=== PATIENT | female | born 1990 | race Caucasian/White ===

== ENCOUNTER 2019-09-14 18:58 | Emergency (ER) | payer MEDICAID ==
[~2019-09-14] VITALS: Ht 160 cm; Wt 72.2 kg
[~2019-09-14 18:58] MED LIST: FERR15DR18 PO
[2019-09-14 19:02] VITALS: BP 137/77
[2019-09-14] MEDS ORDERED: LIDOCAINE-MPF 1%, 5ML INFIL ONE (19:30)
[2019-09-14] MEDS ORDERED: ACETAMINOPHEN 500 MG TABLET PO ONE (19:30)
--- NOTE | 2019-09-14 19:57 | NUR ---
ACCESS CLINICIAN: PT. TO ROOM FROM LOBBY AT THIS TIME.
[2019-09-14] MEDS ORDERED: LIDOCAINE-MPF 1%, 5ML ONE (20:02)
[2019-09-14] MEDS ORDERED: ACETAMINOPHEN 500 MG TABLET ONE (20:02)
[2019-09-14] MEDS ORDERED: BUPIVACAINE 0.25% ONE (20:16)
[2019-09-14] MEDS ORDERED: BUPIVACAINE 0.25% INFIL ONE (20:30)
== END 2019-09-14 20:35 | disposition home or self-care (01) ==
LOC: ED 20:30
DX: K04.7 Periapical abscess without sinus (principal); K02.9 Dental caries, unspecified; K08.89 Other specified disorders of teeth and supporting structures; R51 Headache
CPT/HCPCS: 41800; 99283; 99284